=== PATIENT | female | born 2000 | race Caucasian/White ===

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

== ENCOUNTER 2018-03-27 11:31 | Emergency (ER) | payer OTHER ==
[~2018-03-27] VITALS: Ht 172.7 cm; Wt 113.4 kg
[~2018-03-27 11:31] MED LIST changes: +AMOXICILLIN500 M2 PO
[2018-03-27] MEDS ORDERED: NAPROSYN500 MG PO (11:38)
[2018-03-27] MEDS ORDERED: TYLENOL325 M1 PO (11:38)
== END 2018-03-27 11:44 | disposition home or self-care (01) ==
LOC: ED 11:31
DX: G89.29 Other chronic pain (principal); M25.532 Pain in left wrist

== ENCOUNTER 2018-06-08 16:56 | Emergency (ER) | payer OTHER ==
[~2018-06-08] VITALS: Wt 98.9 kg
[~2018-06-08 16:56] MED LIST changes: +NAPROSYN500 MG PO; +TYLENOL325 M1 PO
[2018-06-08 17:27] LABS: BILIRUBIN NEGATIVE (NEGATIVE); BLOOD NEGATIVE (NEGATIVE); CLARITY CLEAR (CLEAR); COLOR YELLOW (YELLOW); GLUCOSE NEGATIVE (NEGATIVE); KETONE NEGATIVE (NEGATIVE); LEUKO ESTERASE NEGATIVE (NEGATIVE); NITRITE NEGATIVE (NEGATIVE); PH 5.5 (5.0-9.0); SPECIFIC GRAVITY 1.025 (1.005-1.030); UROBILINOGEN 0.2 E.U./dl (0.2-1.0)
[2018-06-08 17:39] LABS: BACTERIA TRACE; MUCOUS 1+
== END 2018-06-08 18:19 | disposition home or self-care (01) ==
LOC: ED 16:56
PROVIDERS: Emergency Medicine
DX: R30.0 Dysuria (principal)

== ENCOUNTER 2018-06-28 01:30 | Emergency (ER) | payer OTHER ==
[~2018-06-28] VITALS: Wt 99.8 kg
[2018-06-28] MEDS ORDERED: ANUSOL-HC25 MG R (01:55)
== END 2018-06-28 02:01 | disposition home or self-care (01) ==
LOC: ED 01:30
DX: K64.9 Unspecified hemorrhoids (principal)

== ENCOUNTER 2018-07-08 17:22 | Emergency (ER) | payer OTHER ==
[~2018-07-08] VITALS: Wt 98.9 kg
[~2018-07-08 17:22] MED LIST changes: +ANUSOL-HC25 MG R
[2018-07-08] MEDS ORDERED: PREDNISONE10 MG PO (17:42)
[2018-07-08] MEDS ORDERED: FLONASE ALLERG9.9 ML NAS (17:42)
[2018-07-08] MEDS ORDERED: CLARITIN10 MG PO (17:42)
[2018-07-08] MEDS ORDERED: PROAIR HFA8.5 GM INH (18:27)
== END 2018-07-08 18:25 | disposition home or self-care (01) ==
LOC: ED 17:22
DX: J20.9 Acute bronchitis, unspecified (principal); R03.0 Elevated blood-pressure reading, without diagnosis of hypertension; G89.29 Other chronic pain; Z79.899 Other long term (current) drug therapy

== ENCOUNTER 2019-08-14 18:04 | Emergency (ER) | payer SELFPAY ==
[~2019-08-14] VITALS: Ht 162.5 cm; Wt 97.5 kg
[~2019-08-14 18:04] MED LIST changes: +CLARITIN10 MG PO; +FLONASE ALLERG9.9 ML NAS; +PROAIR HFA8.5 GM INH
[2019-08-14] MEDS ORDERED: IBUPROFEN600 MG PO (18:36)
[2019-08-14] MEDS ORDERED: AMOXICILLIN500 M2 PO (18:36)
== END 2019-08-14 18:50 | disposition home or self-care (01) ==
LOC: ED 18:04
DX: K08.89 Other specified disorders of teeth and supporting structures (principal); J45.909 Unspecified asthma, uncomplicated; Z79.899 Other long term (current) drug therapy

== ENCOUNTER 2019-08-26 20:40 | Emergency (ER) | payer SELFPAY ==
[~2019-08-26] VITALS: Ht 165.1 cm; Wt 97.5 kg
[~2019-08-26 20:40] MED LIST changes: +IBUPROFEN600 MG PO
[2019-08-26] MEDS ORDERED: ZOFRAN4 MG PO (23:20)
== END 2019-08-26 23:59 | disposition home or self-care (01) ==
LOC: ED 20:40
DX: A08.4 Viral intestinal infection, unspecified (principal); J45.909 Unspecified asthma, uncomplicated

== ENCOUNTER 2021-10-15 14:35 | Emergency (ER) | payer SELFPAY ==
[~2021-10-15] VITALS: Wt 97.5 kg
[~2021-10-15 14:35] MED LIST changes: +ZOFRAN4 MG PO
[2021-10-15 15:36] LABS: HEMATOCRIT 39.2 % (37.0-47.0); MEAN CELL VOLUME 88.1 fl (81.0-99.0); MEAN CORPUSCULAR HGB 28.8 pg (27.0-31.0); MEAN CORPUSCULAR HGB CONC 32.7 g/dl (33.0-37.0); MEAN PLATELET VOLUME 10.8 fl (9.6-12.3); PLATELET COUNT AUTOMATED 251 10*3/uL (130-400); RED BLOOD COUNT 4.45 10*6/uL (4.10-5.10); WHITE BLOOD COUNT 15.5 10*3/uL (4.8-10.8)
[2021-10-15 16:05] LABS: TOTAL CELLS COUNTED 100 #CELLS
[2021-10-15 16:06] LABS: PLATELET SUFFICIENCY NORMAL (NORMAL)
[2021-10-15 16:17] LABS: ALBUMIN 4.1 gm/dl (3.1-4.5); ALKALINE PHOSPHATASE 72 U/L (45-117); BUN 14 mg/dl (7-24); CHLORIDE 109 mmol/L (98-107); CREATININE 0.66 mg/dL (0.55-1.02); LIPASE 80 U/L (73-393); POTASSIUM 4.2 mmol/L (3.5-5.1); SGOT/AST 15 IU/L (3-35); SGPT/ALT 25 U/L (12-78); SODIUM 136 mmol/L (136-145); TOTAL PROTEIN 8.6 gm/dL (6.4-8.2)
[2021-10-15 16:20] LABS: B-hCG (QUALITATIVE) NEGATIVE (NEGATIVE)
[2021-10-15 17:00] LABS: BILIRUBIN Negative (Negative); BLOOD Negative (Negative); CLARITY Clear (Clear); COLOR Yellow (Yellow); GLUCOSE Negative (Negative); KETONE Trace (Negative); LEUKO ESTERASE Negative (Negative); NITRITE Negative (Negative); PH 5.5 (4.5-8.0); SPECIFIC GRAVITY 1.025 (1.001-1.030); UROBILINOGEN 0.2 E.U./dl (0.0-1.0)
[2021-10-15 17:15] LABS: BACTERIA 1+; EPITHELIAL CELLS 0-2; WBC 0-2 wbc/hpf (0-5)
[2021-10-15 17:16] LABS: MUCOUS 2+
[2021-10-15] MEDS ORDERED: CIPRO500 MG PO (18:20)
[2021-10-15] MEDS ORDERED: METRONIDAZOLE500 M1 PO (18:20)
== END 2021-10-15 20:04 | disposition home or self-care (01) ==
LOC: ED 14:35
PROVIDERS: Family Medicine
DX: K52.9 Noninfective gastroenteritis and colitis, unspecified (principal); J45.909 Unspecified asthma, uncomplicated

== ENCOUNTER 2022-07-14 11:51 | Emergency (ER) | payer SELFPAY ==
[~2022-07-14 11:51] MED LIST changes: +CIPRO500 MG PO; +METRONIDAZOLE500 M1 PO
== END 2022-07-14 12:08 | disposition left against medical advice (07) ==
LOC: ED 11:51
DX: Z53.21 Procedure and treatment not carried out due to patient leaving prior to being seen by health care provider (principal)

== ENCOUNTER 2022-10-28 03:42 | Emergency (ER) | payer SELFPAY ==
[~2022-10-28] VITALS: Ht 162.5 cm; Wt 99.8 kg
== END 2022-10-28 05:50 | disposition home or self-care (01) ==
LOC: ED 03:42
DX: U07.1 COVID-19 (principal); J45.909 Unspecified asthma, uncomplicated

== ENCOUNTER 2023-09-15 03:20 | Emergency (ER) | payer BC ==
[~2023-09-15] VITALS: Ht 162.5 cm; Wt 113.4 kg
[2023-09-15] MEDS ORDERED: BENZONATATE100 M1 PO (06:18)
[2023-09-15] MEDS ORDERED: CLARITIN10 MG PO (06:18)
== END 2023-09-15 06:35 | disposition home or self-care (01) ==
LOC: ED 03:20
DX: J06.9 Acute upper respiratory infection, unspecified (principal); Z20.822 Contact with and (suspected) exposure to COVID-19; Z79.2 Long term (current) use of antibiotics; Z79.899 Other long term (current) drug therapy